=== PATIENT | female | born 1985 | race Caucasian/White ===

== ENCOUNTER → 2016-10-22 | Outpatient (CLI) | payer MEDICAID ==
[~2016-10-22] MED LIST: AZIT500T3 PO; CEPH-443 PO; HYDR-3498 PO; IBUP-1542 PO; METR500T PO; ORA20G7 BUCCAL; PEN500 PO; [UNRECOGNIZED DRUG - REMARK]
--- NOTE | 2016-10-22 12:38 | RADRPT ---
PROCEDURE: XR Chest. CLINICAL INDICATION: Positive PPD. TECHNIQUE: Single frontal view. COMPARISON: None. FINDINGS: The lungs are clear. The heart size is normal. There is no pleural effusion. There is no pneumothorax. IMPRESSION: 1. No evidence of active tuberculosis. 2. Normal chest radiograph. RPTAT: QQ .Ramírez Silvestre MD, MD Date Time Electronically viewed and signed by .Ramírez Silvestre MD, on 10/22/2016 12:37 .R/
== END | disposition home or self-care (01) ==
LOC: RAD 11:30
PROVIDERS: ATTEND Obstetrics & Gynecology
DX: O26.90 Pregnancy related conditions, unspecified, unspecified trimester (principal); Z3A.00 Weeks of gestation of pregnancy not specified; R76.11 Nonspecific reaction to tuberculin skin test without active tuberculosis
CPT/HCPCS: 71010

== ENCOUNTER 2016-11-09 15:11 | Inpatient (IN) | payer MEDICAID ==
[~2016-11-09] VITALS: Ht 154.9 cm; Wt 110.0 kg
[2016-11-09 15:20] VITALS: Ht 154.9 cm; Wt 110.0 kg
[2016-11-09 15:23] VITALS: BP 117/60
[2016-11-09] MEDS ORDERED: PRENAT PO (15:26)
[2016-11-09 16:39] LABS: BASOPHILS % 0.1 % (0.0-2.0); EOSINOPHILS # 0.1 10^3/ul (0.0-0.5); HEMOGLOBIN 11.4 g/dl (12.0-16.0); MEAN CORPUSCULAR HEMOGLOBIN 29.2 pg (29.0-33.0); MEAN CORPUSCULAR HGB CONC 33.5 g/dl (32.0-37.0); MEAN CORPUSCULAR VOLUME 87.2 fl (82.0-101.0); MONOCYTE # 0.5 10^3/ul (0.3-0.9); MONOCYTES % 6.8 % (0.0-11.0); NEUTROPHIL # 5.5 10^3/ul (1.6-7.5); NEUTROPHILS % 77.4 % (39.0-77.0); PLATELET COUNT 243 10^3/UL (140-415); RED CELL DISTRIBUTION WIDTH 13.5 % (11.5-14.5); WHITE BLOOD COUNT 7.1 10^3/ul (4.8-10.8)
--- NOTE | 2016-11-09 16:40 | RADRPT ---
PROCEDURE: CERVICAL LENGTH ULTRASOUND CLINICAL INDICATION: Abnormal vaginal bleeding. TECHNIQUE: Trans-vaginal imaging of the cervical canal was performed utilizing thacker-scale imaging. Sagittal and transverse images were obtained. Trans-abdominal images were also obtained. The cipriano ges were reviewed on a PACS workstation. COMPARISON: None. FINDINGS: There is a single live intrauterine . heart rate is 136 beats per minute. Position is cephalic and placenta is fundal grade II. There is no placenta previa. The cervix is closed with a length of 4.1 cm. IMPRESSION: 1. Cervical length is 4.1 cm. RPTAT: QQ .Ramírez Silvestre MD, MD Date Time Electronically viewed and signed by .Ramírez Silvestre MD, on 11/09/2016 16:39 .R/
[2016-11-09 17:57] LABS: ADD UMIC NO; UR ASCORBIC ACID NEGATIVE (NEGATIVE); UR BILIRUBIN (Dip) NEGATIVE (NEGATIVE); UR BLOOD (Dip) NEGATIVE (NEGATIVE); UR CLARITY CLEAR (CLEAR); UR COLOR STRAW (YELLOW); UR GLUCOSE (Dip) NEGATIVE (NEGATIVE); UR KETONES (Dip) NEGATIVE (NEGATIVE); UR LEUKOCYTE ESTERASE (Dip) NEGATIVE Leu/ul (NEGATIVE); UR NITRITE (Dip) NEGATIVE (NEGATIVE); UR SPECIFIC GRAVITY (Dip) 1.006 (1.003-1.030); UR TOTAL PROTEIN (Dip) NEGATIVE (NEGATIVE); UR UROBILINOGEN (Dip) NEGATIVE (NEGATIVE)
--- NOTE | 2016-11-09 18:29 | PN ---
Triage Information Date/Time Weeks of Gestation 31+wks GA spotting : 4 Para: 3 Objective Vital Signs Date Time Temp Pulse Resp B/P Pulse Ox O2 Delivery O2 Flow Rate FiO2 11/09/16 15:23 98.0 117/60 Room Air Results/Medications Result Diagram: 11/09/16 1627 Results 24 hrs Laboratory Tests Test 11/09/16 16:05 11/09/16 16:27 Urine Color STRAW Urine Clarity CLEAR Urine pH 7.0 Urine Specific Newcomb 1.006 Urine Ketones NEGATIVE Urine Nitrite NEGATIVE Urine Bilirubin NEGATIVE Urine Urobilinogen NEGATIVE Urine Leukocyte Esterase NEGATIVE Urine Hemoglobin NEGATIVE Urine Glucose NEGATIVE Urine Total Protein NEGATIVE White Blood Count 7.1 Red Blood Count 3.90 L Hemoglobin 11.4 L Hematocrit 34.0 L Mean Corpuscular Volume 87.2 Mean Corpuscular Hemoglobin 29.2 Mean Corpuscular Hemoglobin Concent 33.5 Red Cell Distribution Width 13.5 Platelet Count 243 Mean Platelet Volume 9.0 Neutrophils % 77.4 H Lymphocytes % 14.0 L Monocytes % 6.8 Eosinophils % 1.0 Basophils % 0.1 Nucleated Red Blood Cells % 0.0 Neutrophils # 5.5 Lymphocytes # 1.0 Monocytes # 0.5 Eosinophils # 0.1 Basophils # 0.0 Nucleated Red Blood Cells # 0.0 Assessment/Plan CXL WNL No sign of bleeding If RH Positive and There is no abnormality in BPP and she is RH positive can be discharge and followed up with her provider Return to hospital in 2 days for NST./BPP TIO TATE M.D. Nov 09, 2016 18:29
--- NOTE | 2016-11-09 19:12 | RADRPT ---
PROCEDURE: OB ultrasound CLINICAL INDICATION: Vaginal spotting TECHNIQUE: Multiple transverse and longitudinal OB images of the pelvis were obtained. The images were reviewed on a high-resolution PACS workstation. COMPARISON: None FINDINGS: A single live intrauterine is seen. The presentation is vertex. The placenta is grade 2 a nd fundal in location. No evidence of placenta abruption or previa is seen. The heart rate is 168 beats per minute. The amniotic fluid index is 6.80 cm. movement 2 tone 2 breathing 2 Amniotic fluid 2 IMPRESSION: Biophysical profile of 11/27. RPTAT: HPNM Physician Jenny Date Time Electronically viewed and signed by Physician Jenny on 11/09/2016 19:12 /
[2016-11-09] MEDS: LACTATED RINGER'S 1,000 ML IV SCH (21:36)
[2016-11-09] MEDS ORDERED: TERBUTALINE 1 MG/ML INJ SC ONE (22:30)
[2016-11-09] MEDS: NIFEdipine 10 MG CAP PO SCH (23:51)
--- NOTE | 2016-11-10 00:28 | TRIAGE ---
OB Triage Datetime Report Generated by CPN: 11/10/2016 00:28 Datetime: 11/10/2016 00:15 Stage of : Antepartum Labor Evaluation Frequency: OCCA Monitor Mode: External Duration (sec)2399: 50 Quality: Mild Pattern: Normal: <= 5 Contractions in 10 Minutes Resting Tone Ettrick: Relaxed Contraction Comments: MILD IRRITABILITY NOTED. ABDOMEN SOFT ON PALPATION. Heart Rate FHR Baseline Rate: 135 Monitor Mode: External US Variability: Moderate 6-25 bpm Accelerations: 15X15 Decelerations: None Category: Category I Comments: PT ACKNOWLEDGES MOVEMENT Pain Assessment Comments: PT STATES FEELING RELIEF FROM CRAMPING. Datetime: 11/10/2016 00:05 Stage of : Antepartum Datetime: 11/09/2016 23:57 Stage of : Antepartum Assessment Type: Admission Assessment Vaginal Bleeding: None (Annotations: NO BLEEDING NOTED AT THIS TIME.) Maternal Assessment Level of Consciousness: Fully Conscious DTR's/Clonus: DTRs 2+; No Clonus Headache: Denies Blurred Vision: No Respiratory Effort: Unlabored; Regular Rhythm; Equal Expansion Breath Sounds, Left: Clear and Equal Breath Sounds, Right: Clear and Equal Nausea/Vomiting: Denies RUQ Epigastric Pain: Denies Lower Extremities Edema: Bilateral Lower Extremities Degree: 1+ Upper Extremities Edema: Bilateral Upper Extremities Degree: 1+ Facial Edema: None Fall Risk Assessment History of Falling: (0) No Secondary Diagnosis: (0) No Ambulatory Aid: (0) Bedrest/Nurse Assist IV Therapy: (20) Yes Gait: (0) Normal/Bedrest/Immobile Mental Status: (0) Oriented to Own Ability Fall Score: 20 Fall Risk Score Definition: No Risk: No action required Pain Assessment Pain Scale: 3 Pain Presence: Intermittent Pain Type: Cramping Pain Location: Abdomen; Back Pain Goal: 3 Datetime: 11/09/2016 23:40 Time of Arrival: 11/09/2016 23:40 EGA: 31.6 Arrived By: Wheelchair Arrived From: Other Unit in Hospital Datetime: 11/09/2016 23:30 Comments: Pt off monitor, taken to 2NE via wheelchair. Datetime: 11/09/2016 23:00 Stage of : OB Triage Labor Evaluation Frequency: 3-12 Monitor Mode: External Duration (sec)2399: 40-110 Quality: Mild Pattern: Normal: <= 5 Contractions in 10 Minutes Resting Tone Ettrick: Relaxed Heart Rate FHR Baseline Rate: 130 Monitor Mode: External US FHR Baseline Changes: No Baseline Change Variability: Moderate 6-25 bpm Accelerations: 15X15 Decelerations: None Category: Category I Datetime: 11/09/2016 22:35 Stage of : OB Triage Datetime: 11/09/2016 22:00 Stage of : OB Triage Labor Evaluation Frequency: 3-12 Monitor Mode: External Duration (sec)2399: 40-110 Quality: Mild Pattern: Normal: <= 5 Contractions in 10 Minutes Resting Tone Ettrick: Relaxed Heart Rate FHR Baseline Rate: 135 Monitor Mode: External US FHR Baseline Changes: No Baseline Change Variability: Moderate 6-25 bpm Accelerations: 15X15 Decelerations: None Category: Category I Datetime: 11/09/2016 21:21 Monitor Mode: External US Datetime: 11/09/2016 21:00 Stage of : OB Triage Labor Evaluation Frequency: 1-9 Monitor Mode: External Duration (sec)2399: 40-110 Quality: Mild Pattern: Normal: <= 5 Contractions in 10 Minutes Resting Tone Ettrick: Relaxed Heart Rate FHR Baseline Rate: 135 Monitor Mode: External US FHR Baseline Changes: No Baseline Change Variability: Moderate 6-25 bpm Accelerations: 15X15 Decelerations: None Category: Category I Datetime: 11/09/2016 20:00 Stage of : OB Triage Labor Evaluation Frequency: 8-10 (Annotations: with occassional irritability.) Monitor Mode: External Duration (sec)2399: 60-110 Quality: Mild Pattern: Normal: <= 5 Contractions in 10 Minutes Resting Tone Ettrick: Relaxed Heart Rate FHR Baseline Rate: 135 Monitor Mode: External US FHR Baseline Changes: No Baseline Change Variability: Moderate 6-25 bpm Accelerations: 15X15 Decelerations: None Category: Category I Datetime: 11/09/2016 19:14 Assessment Type: Ongoing Assessment Maternal Assessment Level of Consciousness: Fully Conscious DTR's/Clonus: DTRs 2+; No Clonus Headache: Denies Blurred Vision: No Respiratory Effort: Unlabored; Regular Rhythm; Equal Expansion Breath Sounds, Left: Clear and Equal Breath Sounds, Right: Clear and Equal Nausea/Vomiting: Denies RUQ Epigastric Pain: Denies Lower Extremities Edema: None Degree: None Upper Extremities Edema: Bilateral Upper Extremities Degree: 1+ Facial Edema: None Fall Risk Assessment History of Falling: (0) No Secondary Diagnosis: (0) No Ambulatory Aid: (0) Bedrest/Nurse Assist IV Therapy: (0) No Gait: (0) Normal/Bedrest/Immobile Mental Status: (0) Oriented to Own Ability Fall Score: 0 Fall Risk Score Definition: No Risk: No action required Monitor Mode: External US Datetime: 11/09/2016 18:47 Stage of : OB Triage Labor Evaluation Frequency: 0 Monitor Mode: External Pattern: Normal: <= 5 Contractions in 10 Minutes Resting Tone Ettrick: Relaxed Heart Rate FHR Baseline Rate: 145 Monitor Mode: External US Variability: Moderate 6-25 bpm Accelerations: 15X15 Category: Category I Pain Presence: None/Denies Pain Type: N/A Vaginal Exam Membrane Status: Intact Datetime: 11/09/2016 17:45 Stage of : OB Triage Labor Evaluation Frequency: 0 Monitor Mode: External Pattern: Normal: <= 5 Contractions in 10 Minutes Resting Tone Ettrick: Relaxed Heart Rate FHR Baseline Rate: 135 Monitor Mode: External US Variability: Moderate 6-25 bpm Accelerations: 15X15 Decelerations: None Category: Category I Pain Presence: None/Denies Pain Type: N/A Datetime: 11/09/2016 16:22 Stage of : OB Triage Labor Evaluation Frequency: IRREG Monitor Mode: External Duration (sec)2399: 30-60 Pattern: Normal: <= 5 Contractions in 10 Minutes Resting Tone Ettrick: Relaxed Heart Rate FHR Baseline Rate: 135 Variability: Moderate 6-25 bpm Accelerations: 15X15 Decelerations: None Category: Category I Pain Presence: None/Denies Pain Type: N/A Vaginal Exam Membrane Status: Intact Datetime: 11/09/2016 15:28 Stage of : OB Triage Assessment Type: Triage Maternal Assessment Level of Consciousness: Fully Conscious DTR's/Clonus: DTRs 2+; No Clonus Headache: Denies Blurred Vision: No Respiratory Effort: Unlabored; Regular Rhythm; Equal Expansion Breath Sounds, Left: Clear and Equal Breath Sounds, Right: Clear and Equal Nausea/Vomiting: Denies RUQ Epigastric Pain: Denies Lower Extremities Edema: Bilateral Lower Extremities Degree: Pitting Upper Extremities Edema: None Facial Edema: None Temperature Route: Oral Fall Risk Assessment History of Falling: (0) No Secondary Diagnosis: (0) No Ambulatory Aid: (0) Bedrest/Nurse Assist IV Therapy: (0) No Gait: (0) Normal/Bedrest/Immobile Mental Status: (0) Oriented to Own Ability Fall Score: 0 Fall Risk Score Definition: No Risk: No action required Labor Evaluation Frequency: 0 Monitor Mode: External Heart Rate FHR Baseline Rate: 145 Monitor Mode: External US Pain Assessment Pain Scale: 0 Pain Presence: None/Denies Pain Type: N/A Datetime: 11/09/2016 15:27 Time of Arrival: 11/09/2016 15:05 EGA: 31.6 Arrived By: Ambulatory Arrived From: Home Chief Complaint: C/P SPOTTING Movement: Present Contractions: Denies/Absent Rupture of Membranes: Denies Vaginal Bleeding: Small Vaginal Discharge: Denies Recent Sexual Intercouse: Denies Abdominal Trauma: Not Applicable Patient Complaints: Other Time Provider Notified: 11/09/2016 16:05 Provider Notified: DR. BARRETO Initial Plan: EFMSara, TORI APPIAH
[2016-11-10] MEDS: LACTATED RINGER'S 1,000 ML IV SCH ×3 (03:39→22:18)
[2016-11-10] MEDS: NIFEdipine 10 MG CAP PO SCH (06:12)
[2016-11-10] MEDS ORDERED: ONDANSETRON 4 MG INJ IV PRN (09:00)
[2016-11-10] MEDS ORDERED: MAGNESIUM SULFATE 4 GM/100 ML 100 ML IV ONE (09:00)
[2016-11-10] MEDS: ERYTHROMYCIN LACTOBIONATE 500 MG in SOD CHLORIDE 0.9% 100 ML IVPB SCH ×3 (09:00→17:29)
[2016-11-10] MEDS ORDERED: ACETAMINOPHEN 325 MG TAB PO PRN (09:00)
[2016-11-10] MEDS ORDERED: AL HYDROX/MG HYDROX/SIMETH 30 ML CUP PO PRN (09:00)
[2016-11-10 09:40] LABS: BASOPHILS % 0.1 % (0.0-2.0); EOSINOPHILS % 0.6 % (0.0-7.0); HEMOGLOBIN 11.2 g/dl (12.0-16.0); LYMPHOCYTES # 0.8 10^3/ul (0.8-2.9); LYMPHOCYTES % 11.2 % (15.0-51.0); MEAN CORPUSCULAR HEMOGLOBIN 29.1 pg (29.0-33.0); MEAN CORPUSCULAR HGB CONC 32.9 g/dl (32.0-37.0); MEAN CORPUSCULAR VOLUME 88.3 fl (82.0-101.0); MEAN PLATELET VOLUME 8.9 fl (7.4-10.4); MONOCYTE # 0.5 10^3/ul (0.3-0.9); MONOCYTES % 7.4 % (0.0-11.0); NEUTROPHIL # 5.6 10^3/ul (1.6-7.5); PLATELET COUNT 231 10^3/UL (140-415); RED BLOOD COUNT 3.85 10^6/ul (4.20-5.40); RED CELL DISTRIBUTION WIDTH 13.8 % (11.5-14.5)
[2016-11-10] MEDS: BETAMET NA PHOS/AC(6 MG/ML) 5ML INJ IM SCH (09:44)
[2016-11-10] MEDS: AMPICILLIN 2 GM/NS (PMX) 100 ML IV SCH ×4 (09:44→23:57)
[2016-11-10] MEDS: MAGNESIUM SULFATE 20 GM/500 ML 500 ML IV SCH ×2 (09:54→21:20)
[2016-11-10 10:06] LABS: INR 0.95; PARTIAL THROMBOPLASTIN TIME 30.7 Sec (25.0-35.0); PROTIME 12.7 Sec (12.2-14.2)
--- NOTE | 2016-11-10 10:41 | RADRPT ---
PROCEDURE: US OB. CLINICAL INDICATION: Leaking amniotic fluid. TECHNIQUE: Multiple sonographic images of the uterus were obtained. The images were revi ewed on a PACS workstation. COMPARISON: No prior studies are available for comparison. FINDINGS: There is a single live intrauterine gestation. heart rate is 144 beats per minute. Measurements were made in order to determine age. The results are as follows: BPD = 8.32 cm. HC = 29.86 cm. AC = 32.33 cm. FL = 6.13 cm. Estimated weight is 2438 +/- 366 grams. LMP growth percentile is greater than 97 %. Menstrual age by ultrasound dates is 33 weeks 5 days. The estimated date of delivery is 12/24/2016. Amniotic fluid index is 10.9 cm. Position is cephalic and placenta is posterior grade II. There is no evidence for an abruption or pl acenta previa. IMPRESSION: 1. Single live intrauterine gestation of 33 weeks 5 days menstrual age by ultrasound dates. 2. The estimated date of delivery is 12/24/2016. RPTAT: QQ .Ramírez Silvestre MD, MD Date Time Electronically viewed and signed by .Ramírez Silvestre MD, on 11/10/2016 10:40 .R/
[2016-11-10] MEDS: PRENATAL VITAMIN PO SCH (10:44)
--- NOTE | 2016-11-10 17:57 | HP ---
Date/Time of Note Date/Time of Note DATE: 11/10/16 TIME: 17:53 OB - History Hx of Present Free Text/Dictation Admitted complaining of contractions started at 1500 p.m. on 11/09 Chief Complaint: Vaginal bleeding and uterine contractions Estimated Due Date: Nov 04, 2016 : 4 Para: 3 Care: Other (Unknown at this point) Ultrasounds: Normal mid trimester US Obstetrical Complications: None Medical Complications: None Past Family/Social History * Past Medical, Surgical, Family and Obstetric Histories reviewed from chart. OB Admission Exam Vital Signs Vital Signs Vital Signs Date Time Temp Pulse Resp B/P Pulse Ox O2 Delivery O2 Flow Rate FiO2 11/09/16 15:23 98.0 117/60 Room Air Physical Exam HEENT: WNL Heart: Rhythm Normal Lungs: Clear, Equal Abdomen: WNL Extremities: Normal Reflexes: Normal Cervical Dilatation: None Effacement: 0% Station: -3 Membranes: Intact Heart Rate: 140's Accelerations: Accelerations Present Decelerations: No Decelerations Varibility: Marked Contractions on Admission: >10 Minutes Apart Date/Time Contractions Began: 11/09/2016 1800 p.m. Frequency of Contractions: Every 5-10 minutes Duration: Over 45 seconds Intensity: Mild Last 72 hours Lab Results CBC & BMP 11/09/16 16:27 11/10/16 09:28 Magnesium Level Test 11/10/16 12:02 Magnesium Level 3.4 H OB Assessment/Plan Reason for admission: labor Other Assessment: Vaginal bleeding Decreased amniotic fluid possible spontaneous rupture of Other plan: Admitted originally for observation Complaining of passage of large amounts of fluid at 400 a.m. on November 10 This service will treat patient for spontaneous rupture of membranes at 31 week If bleeding stops with performed more sensitive test to diagnose or rule out spontaneous rupture of membrane BROOKE ANGEL MD Nov 10, 2016 17:57
--- NOTE | 2016-11-10 17:59 | PN ---
Date/Time of Note Date/Time of Note DATE: 11/10/16 TIME: 17:57 OB Subjective Subjective Subjective No more complaint of vaginal bleeding Feels a lot better comparing to yesterday Has minimal complaint of uterine contractions OB Objective Objective Objective Cervix was reexamined today appear to be closed General physical exam vital signs are within normal limits Patient had DAT of over 10 today Because of complaint of vaginal bleeding this morning more sensitive test to rule out ruptured membranes was not performed OB Assessment/Plan Reason for admission: labor Other Assessment: Possible rupture membranes at 31 weeks Other plan: Continue tocolysis We will perform sensitive test for ruptured membrane next day if patient does not have complaint of vaginal bleeding Meanwhile treat the patient for spontaneous rupture of membranes including steroids and IV antibiotic BROOKE ANGEL MD Nov 10, 2016 17:59
[2016-11-11] MEDS: ERYTHROMYCIN LACTOBIONATE 500 MG in SOD CHLORIDE 0.9% 100 ML IVPB SCH ×4 (00:52→18:22)
[2016-11-11] MEDS: AMPICILLIN 2 GM/NS (PMX) 100 ML IV SCH ×4 (06:40→23:31)
[2016-11-11] MEDS: MAGNESIUM SULFATE 20 GM/500 ML 500 ML IV SCH ×2 (06:44→17:11)
[2016-11-11] MEDS: PRENATAL VITAMIN PO SCH (09:08)
[2016-11-11] MEDS: BETAMET NA PHOS/AC(6 MG/ML) 5ML INJ IM SCH (09:48)
[2016-11-11] MEDS: LACTATED RINGER'S 1,000 ML IV SCH (11:14)
--- NOTE | 2016-11-11 12:26 | PN ---
Date/Time of Note Date/Time of Note DATE: 11/11/16 TIME: 12:23 OB Subjective Subjective Subjective No more complaint of leaking No complaint of uterine contractions OB Objective Objective Objective Vital signs stable General physical examination is unchanged ruptured membrane is positive OB Assessment/Plan Reason for admission: labor Other Assessment: spontaneous rupture of membrane 31+ weeks gestation Other plan: We will continue magnesium sulfate at least 24 hours Perinatology consult next day Continue antibiotics until at least 24 hours BROOKE ANGEL MD Nov 11, 2016 12:26
--- NOTE | 2016-11-11 14:07 | RADRPT ---
PROCEDURE: US OB. CLINICAL INDICATION: labor. Low DAT TECHNIQUE: Pelvic ultrasound performed for biophysical profile. COMPARISON: 11/10/2016 ultrasound FINDINGS: Single intrauterine gestation present with heart rate at 131 beats per minute. Presentation is ceph alic. Placenta is fundal, grade II. Amniotic fluid volume is within normal limits, with DAT = 1 0.28 cm. IMPRESSION: Live intrauterine gestation in cephalic presentation. DAT of 10.3 cm. No definite evidence for placental abruption. RPTAT: HH .Osmani Pool MD, MD Date Time Electronically viewed and signed by .Osmani Pool MD, on 11/11/2016 14:07 .M/
[2016-11-11] MEDS ORDERED: ERYTHROMYCIN LACTOBIONATE 500 MG in SOD CHLORIDE 0.9% 100 ML IVPB SCH (18:00)
[2016-11-12] MEDS: ERYTHROMYCIN LACTOBIONATE 500 MG in SOD CHLORIDE 0.9% 100 ML IVPB SCH ×4 (00:21→18:11)
[2016-11-12] MEDS: MAGNESIUM SULFATE 20 GM/500 ML 500 ML IV SCH ×2 (04:35→15:29)
[2016-11-12] MEDS: LACTATED RINGER'S 1,000 ML IV SCH ×2 (05:32→14:18)
[2016-11-12] MEDS: AMPICILLIN 2 GM/NS (PMX) 100 ML IV SCH ×3 (05:32→17:38)
[2016-11-12] MEDS: PRENATAL VITAMIN PO SCH (08:41)
--- NOTE | 2016-11-12 16:32 | PERINOTE ---
Date/Time of Note Date/Time of Note DATE: 11/12/16 TIME: 16:15 Assessment/Recommendations Other Assessments premature rupture of membranes (suspected) Known trisomy 21 fetus Recommendations: Agree with your plan for observation in the hospital with antibiotics for latency. Would discontinue tocolysis after completion of the steroid course for lung maturity. If the patient continues to leak fluid, would favor delivery at 34-35 weeks GA. If leaking stops and fluid volume recovers would assess whether the membrane had sealed; this would allow the patient to be discharged with routine follow up. OB Subjective Free Text/Dictaton Patient with known trisomy 21 fetus admitted with vaginal spotting and loss of fluid, thought to be due to rupture of membranes. Currently denies vaginal leaking and denies other issues. HD# 4 IUP @ 32W2D Current Medications Current Medications Prenat Multivit/ [place]/Iron/Folic Ac 1 tab 1 tab DAILY PO Last administered on 11/12/16 08:41; Admin Dose 1 TAB; Start 11/10/16 at 09:00 Lactated Ringer's 1,000 ml @ 75 mls/hr [id number] IV Last administered on 05:32; Admin Dose 75 MLS/HR; Start 11/10/16 at 08:58 Magnesium Sulfate 500 ml @ 50 mls/hr Q10H IV Last administered on 11/12/16 15 :29; Admin Dose 50 MLS/HR; Start 11/10/16 at 08:58 Ampicillin 100 ml @ 100 mls/hr Q6 IV Last administered on 11/12/16 11:31; Admin Dose 100 MLS/HR; Start 11/10/16 at 09:00 Erythromycin Lactobionate/ Sodium Chloride (Erythromycin Lactobionate/NS) 100 ml @ 100 mls/hr Q6 IVPB Last administered on 11/12/16 11:38; Admin Dose 100 MLS/HR; Start 11/10/16 at 09:00 Acetaminophen (Tylenol Tab) 650 mg Q4H PRN PO PAIN AND OR ELEVATED TEMP Last administered on 11/10/16 10:44; Admin Dose 650 MG; Start 11/10/16 at 09:00 Al Hydrox/Mg Hydrox/Simethicone (Mag-Al Plus) 30 ml Q6H PRN PO GASTROINTESTINAL UPSET; Start 11/10/16 at 09:00 Ondansetron HCl (Zofran Inj) 4 mg Q6H PRN IV NAUSEA AND/OR VOMITING; Start at 09:00 Past Medical History Medical History: no pertinent history Surgical History: no surgical history VASCULAR TECH History: no pertinent VASCULAR TECH history Para: 3 : 4 LMP (Females 10-50): Family History Significant Family History: diabetes OB Admission Exam Physical Exam Vitals: Vital Signs Date Time Temp Pulse Resp B/P Pulse Ox O2 Delivery O2 Flow Rate FiO2 11/09/16 15:23 98.0 117/60 Room Air 11/12/16 82 114/34 Heart: Rhythm Normal Lungs: Clear Abdomen: WNL Heart Rate: 120's Accelerations: Accelerations Present Decelerations: No Decelerations Varibility: Moderate Contractions on Admission: None Last 72 hours Lab Results CBC & BMP 11/09/16 16:27 11/10/16 09:28 Magnesium Level Test 11/10/16 12:02 11/10/16 18:19 11/11/16 00:41 11/11/16 06:41 Magnesium Level 3.4 H 4.5 H 4.4 H 4.7 H Test 11/11/16 13:16 11/11/16 18:24 11/12/16 00:35 11/12/16 05:50 Magnesium Level 4.5 H 4.5 H 4.5 H 4.4 H Test 11/12/16 12:18 Magnesium Level 4.4 H Copies To: CC: BROOKE ANGEL MD, MARIE H MD Nov 12, 2016 16:31
--- NOTE | 2016-11-12 18:19 | PN ---
Date/Time of Note Date/Time of Note DATE: 11/12/16 TIME: 18:16 OB Subjective Subjective Subjective No more complaint of a uterine contractions Complaining of leakage OB Objective Objective Objective Vital signs stable General physical exam is grossly normal On electronic monitoring minimal uterine contractions seen. heart tones reactive OB Assessment/Plan Reason for admission: labor Other Assessment: spontaneous rupture of membranes at 31 weeks Other plan: We will discontinue magnesium sulfate Start on p.o. nifedipine Change to p.o. antibiotics within 24 hours BROOKE ANGEL MD Nov 12, 2016 18:19
[2016-11-12] MEDS: NIFEdipine 10 MG CAP PO SCH (18:30)
[2016-11-13] MEDS: AMPICILLIN 2 GM/NS (PMX) 100 ML IV SCH ×3 (05:12→11:27)
[2016-11-13] MEDS: LACTATED RINGER'S 1,000 ML IV SCH ×3 (05:13→11:35)
[2016-11-13] MEDS: ERYTHROMYCIN LACTOBIONATE 500 MG in SOD CHLORIDE 0.9% 100 ML IVPB SCH ×4 (06:01→12:16)
[2016-11-13] MEDS: NIFEdipine 10 MG CAP PO SCH ×5 (06:02→23:57)
[2016-11-13] MEDS: PRENATAL VITAMIN PO SCH (08:57)
--- NOTE | 2016-11-13 12:54 | RADRPT ---
PROCEDURE: US OB. CLINICAL INDICATION: Low DAT , pain, premature rupture of membranes TECHNIQUE: Transabdominal views of the pelvis are available for review. COMPARISON: Yesterday FINDINGS: There is a single intrauterine gestation in a vertex position. The heart rate is noted at 139 bpm. The placenta is left lateral. The DAT measures 11.2 cm. RPTAT: AA IMPRESSION: Normal DAT. .Chepe Frankel MD, MD Date Time Electronically viewed and signed by .Chepe Frankel MD, MD on 11/13/2016 12:54 .S/
--- NOTE | 2016-11-13 15:50 | PN ---
Date/Time of Note Date/Time of Note DATE: 11/13/16 TIME: 15:44 OB Subjective Subjective Subjective No C/O UC no more leaking OB Objective Objective Objective VSS P/E is unchanged FHTs R The DAT measures 11.2 cm. OB Assessment/Plan Reason for admission: labor Other Assessment: spontaneous rupture of membrane Normal amniotic fluid index Other plan: We will recheck for ruptured membrane by reliable method BROOKE ANGEL MD Nov 13, 2016 15:50
[2016-11-13] MEDS: ERYTHROMYCIN BASE (EC) 500 MG TAB PO SCH ×2 (17:37→23:58)
[2016-11-13] MEDS: AMPICILLIN 500 MG CAP PO SCH ×2 (17:38→23:58)
[2016-11-14] MEDS: LACTATED RINGER'S 1,000 ML IV SCH ×2 (03:43→17:41)
[2016-11-14] MEDS: AMPICILLIN 500 MG CAP PO SCH ×3 (06:02→17:45)
[2016-11-14] MEDS: ERYTHROMYCIN BASE (EC) 500 MG TAB PO SCH ×3 (06:02→17:45)
[2016-11-14] MEDS: NIFEdipine 10 MG CAP PO SCH ×3 (06:02→17:45)
[2016-11-14] MEDS: PRENATAL VITAMIN PO SCH (09:32)
--- NOTE | 2016-11-14 15:03 | PN ---
Date/Time of Note Date/Time of Note DATE: 11/14/16 TIME: 15:01 OB Subjective Subjective Subjective No complaint of leakage No complaint of vaginal bleeding Had episode of vaginal bleeding yesterday OB Objective Objective Objective Patient had elevated DAT is on daily basis On electronic monitoring heart tones are reactive General physical exam is unchanged and vital signs are stable OB Assessment/Plan Reason for admission: labor Other Assessment: spontaneous rupture of membrane Other plan: We will repeat positive form of amniotic leakage detection next day Continue to observe BROOKE ANGEL MD Nov 14, 2016 15:03
--- NOTE | 2016-11-14 15:16 | QN ---
Documentation Job number: Neonatology consultation for 32.4 week premature with premature rupt Comment I was asked to talk with his mother who is 30-year-old 4 para 3 term 3 Ab0 living 3 with good care. EDC 01/05/2017. Estimated gestational age is 32.4 weeks. Mother was admitted on 11/09 with no history of premature rupture of membranes. She has been started on mag sulfate and also antibiotics on 722. She received betamethasone first dose on 11/10 at 0495 hours and second dose on 11/11 at 0495 hours. Down syndrome was diagnosed by [facility] PT during the second trimester. There is also questionable double bubble documented but however no ultrasound reports were seen and confirmation was not documented. Also the possibility of congenital heart disease was not documented. Mother's blood type is O+, RPR nonreactive, hepatitis B antigen negative, HIV negative and GBS positive and GC and chlamydia cultures negative. I discussed with mother about the possibility of respiratory distress and treatment with oxygen administration high flow nasal cannula and CPAP and ventilation if needed. I also discussed with her about possible apnea and to be monitored and consider caffeine treatment if apnea is severe. I also discussed about increased risk of infection due to prematurity as well as mother being positive for GBS. I discussed about obtaining the lab tests as well as cultures and either treating the infant or to be monitored for infection based on infant's clinical condition. Discussed about starting tube feedings when the 's clinical condition is stable. Discussed about slow feeding, feeding intolerance, risk for gastroesophageal reflux, necrotizing enterocolitis. Encourage mother to pump breastmilk and discussed about the benefits of breastmilk to the premature . Also discussed about the infant to be started on bottle feeding as well as breast-feeding when shows signs of readiness but however due to Down syndrome that may be delayed. Also discussed about the possibility of congenital heart disease in Down's infant's and to be monitored for congenital heart disease. Discussed about possibility of a PICC line placement if infant has feeding intolerance and slow feeding. Also discussed about the risk of hyperbilirubinemia and other problems of prematurity. Discussed about length of stay of 4-6 weeks or longer depending on 's clinical stability and feeding ability. Discussed about mortality as well as morbidity. Mother stated that she was told that there was an opening in the stomach and the infant may need surgery soon after . Maternal charts were reviewed and there was a problem list mentioned that Dr. Upton he mentioned seeing double bubble on ultrasound. Ultrasound reports were not seen and also there was no discussion about congenital heart disease. Requested RN taking care of the mother to obtain the perinatology reports and discussed with mother about possibility of surgery soon after the is born and transferred to a different facility for surgery. 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 Will review tomorrow and update the mother and also discuss the follow-up as well as treatment plans. Thank you for the consultation and will follow with you. LILIAN CARL MD Nov 14, 2016 15:16
--- NOTE | 2016-11-14 18:59 | QN ---
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
[2016-11-15] MEDS: AMPICILLIN 500 MG CAP PO SCH ×5 (06:09→23:32)
[2016-11-15] MEDS: ERYTHROMYCIN BASE (EC) 500 MG TAB PO SCH ×5 (06:09→23:32)
[2016-11-15] MEDS: NIFEdipine 10 MG CAP PO SCH ×5 (06:10→23:33)
[2016-11-15] MEDS: LACTATED RINGER'S 1,000 ML IV SCH ×2 (06:17→19:49)
[2016-11-15] MEDS: PRENATAL VITAMIN PO SCH (08:53)
--- NOTE | 2016-11-15 15:14 | PN ---
Date/Time of Note Date/Time of Note DATE: 11/15/16 TIME: 15:13 OB Subjective Subjective Subjective No complaint of leaking and or uterine contractions OB Objective Objective Objective Vital signs stable Physical exam is normal ROM plus test was positive on 726 heart tones are reactive Electronic monitoring no uterine contractions seen OB Assessment/Plan Reason for admission: labor Other Assessment: spontaneous rupture of membranes Other plan: Continue to observe Will DC p.o. antibiotics next day BROOKE ANGEL MD Nov 15, 2016 15:14
--- NOTE | 2016-11-15 15:23 | PERINOTE ---
Date/Time of Note Date/Time of Note DATE: 11/15/16 TIME: 15:19 Assessment/Recommendations Other Assessments PPROM on bedrest in the hospital Review of the chart in our office reveals the only anomaly seen is a "double bubble" suggestive of duodenal atresia. The echocardiogram was read as normal. There is a strong suspicion of Down Syndrome based on the ultrasound finding and a positive NIPT, but diagnostic testing has not been done. Recommendations: I discussed this patient with Dr. Clemente (furniture packer). He feels that the NICU service can manage this infant, although if there is a duodenal atresia it would be necessary to transfer the baby for surgery. I would continue liam patient in the hospital and on bedrest due to apparent PPROM OB Subjective Free Text/Dictaton Asked to reconsult this patient regarding appropriate delivery location. HD# 7 IUP @ [id number] Current Medications Current Medications Prenat Multivit/ Phelps/Iron/Folic Ac 1 tab 1 tab DAILY PO Last administered on 11/15/16 08:53; Admin Dose 1 TAB; Start 11/10/16 at 09:00 Lactated Ringer's (Lr) 1,000 ml @ 75 mls/hr [id number] IV Last administered on 06:17; Admin Dose 75 MLS/HR; Start 11/10/16 at 08:58 Acetaminophen (Tylenol Tab) 650 mg Q4H PRN PO PAIN AND OR ELEVATED TEMP Last administered on 11/10/16 10:44; Admin Dose 650 MG; Start 11/10/16 at 09:00 Al Hydrox/Mg Hydrox/Simethicone (Mag-Al Plus) 30 ml Q6H PRN PO GASTROINTESTINAL UPSET; Start 11/10/16 at 09:00 Ondansetron HCl (Zofran Inj) 4 mg Q6H PRN IV NAUSEA AND/OR VOMITING; Start at 09:00 Nifedipine (Procardia) 20 mg Q6 PO Last administered on 11/15/16 12:09; Admin Dose 20 MG; Start 11/12/16 at 18:30 Ampicillin (Ampicillin) 500 mg Q6 PO Last administered on 11/15/16 12:08; Admin Dose 500 MG; Start 11/13/16 at 18:00 Erythromycin (Erythromycin Base (Ec)) 500 mg Q6 PO Last administered on t 12:08; Admin Dose 500 MG; Start 11/13/16 at 18:00 OB Admission Exam Physical Exam Vitals: BP: 137/54 T: 98.3 Heart Rate: 150's Accelerations: Accelerations Present Decelerations: No Decelerations Varibility: Moderate Contractions on Admission: None Last 72 hours Lab Results Magnesium Level Test 11/12/16 18:21 Magnesium Level 4.0 H Copies To: CC: BROOKE ANGEL MD, MARIE H MD Nov 15, 2016 15:23
[2016-11-16] MEDS: AMPICILLIN 500 MG CAP PO SCH ×2 (05:47→11:59)
[2016-11-16] MEDS: ERYTHROMYCIN BASE (EC) 500 MG TAB PO SCH ×2 (05:47→11:59)
[2016-11-16] MEDS: NIFEdipine 10 MG CAP PO SCH ×4 (05:48→23:57)
[2016-11-16] MEDS: PRENATAL VITAMIN PO SCH (08:59)
[2016-11-16] MEDS: LACTATED RINGER'S 1,000 ML IV SCH ×2 (09:00→20:42)
--- NOTE | 2016-11-16 16:38 | PN ---
Date/Time of Note Date/Time of Note DATE: 11/16/16 TIME: 16:37 OB Subjective Subjective Subjective Was complaining of minimal leaking yesterday OB Objective Objective Objective Vital signs are stable General physical exam is normal heart tones are reactive On electronic monitoring minimal or no uterine contractions seen OB Assessment/Plan Reason for admission: labor Other Assessment: spontaneous rupture of membranes Other plan: We will DC p.o. antibiotics Continue p.o. nifedipine Repeat DAT BROOKE ANGEL MD Nov 16, 2016 16:38
[2016-11-16] MEDS: MAGNESIUM OXIDE 400 MG TAB PO SCH (20:42)
[2016-11-17] MEDS: NIFEdipine 10 MG CAP PO SCH ×3 (06:25→18:02)
--- NOTE | 2016-11-17 07:48 | RADRPT ---
PROCEDURE: US OB. CLINICAL INDICATION: Rupture of membranes , pain TECHNIQUE: Transabdominal views of the pelvis are available for review. COMPARISON: 11/13/2016 FINDINGS: There is a single intrauterine gestation in a vertex position. The heart rate is noted at 158 bpm. The placenta is left lateral. The DAT measures 5.1 cm. RPTAT: AA IMPRESSION: Oligohydramnios. .Chepe Frankel MD, MD Date Time Electronically viewed and signed by .Chepe Frankel MD, MD on 11/17/2016 07:47 .S/
[2016-11-17] MEDS: PRENATAL VITAMIN PO SCH (09:18)
[2016-11-17] MEDS: LACTATED RINGER'S 1,000 ML IV SCH ×2 (09:18→23:00)
[2016-11-17] MEDS: MAGNESIUM OXIDE 400 MG TAB PO SCH ×3 (09:18→21:13)
--- NOTE | 2016-11-17 17:30 | PN ---
Date/Time of Note Date/Time of Note DATE: 11/17/16 TIME: 17:26 OB Subjective Subjective Subjective Still has minimal leaking Denies uterine contractions OB Objective Objective Objective Vital signs are stable General physical exam is normal Uterus is nontender heart tones appeared reactive Amniotic fluid index is decreased comparing to prior studies OB Assessment/Plan Reason for admission: labor Other Assessment: spontaneous rupture of membrane at 31+ weeks Other plan: We will continue to observe on current medications Repeat CBC Monitor very closely for signs of amnionitis and or labor BROOKE ANGEL MD Nov 17, 2016 17:30
[2016-11-18] MEDS: NIFEdipine 10 MG CAP PO SCH ×5 (00:01→23:57)
[2016-11-18] MEDS: PRENATAL VITAMIN PO SCH (08:57)
[2016-11-18] MEDS: MAGNESIUM OXIDE 400 MG TAB PO SCH ×3 (08:57→20:50)
[2016-11-18] MEDS: LACTATED RINGER'S 1,000 ML IV SCH (12:23)
--- NOTE | 2016-11-18 17:16 | PN ---
Date/Time of Note Date/Time of Note DATE: 11/18/16 TIME: 17:15 OB Subjective Subjective Subjective Complaint of leakage No complaint of uterine contractions OB Objective Objective Objective Vital signs are stable Patient remains afebrile heart tones are reactive On electronic monitoring no uterine contractions seen OB Assessment/Plan Reason for admission: labor Other Assessment: spontaneous rupture of membranes Other plan: Continue to observe Patient also had uterine contractions will proceed with delivery BROOKE ANGEL MD Nov 18, 2016 17:16
[2016-11-19] MEDS: LACTATED RINGER'S 1,000 ML IV SCH ×2 (01:16→17:25)
[2016-11-19] MEDS: NIFEdipine 10 MG CAP PO SCH ×3 (05:54→18:30)
[2016-11-19] MEDS: PRENATAL VITAMIN PO SCH (08:50)
[2016-11-19] MEDS: MAGNESIUM OXIDE 400 MG TAB PO SCH ×3 (08:50→21:19)
--- NOTE | 2016-11-19 16:39 | PN ---
Date/Time of Note Date/Time of Note DATE: 11/19/16 TIME: 16:38 OB Subjective Subjective Subjective Has no complaint of leaking or contraction OB Objective Objective Objective Vital signs are stable General physical exam is unchanged Patient has nontender uterus heart tones are reactive On electronic monitoring no contractions seen OB Assessment/Plan Reason for admission: labor Other Assessment: spontaneous rupture of membrane Other plan: Continue to observe BROOKE ANGEL MD Nov 19, 2016 16:39
[2016-11-20] MEDS: NIFEdipine 10 MG CAP PO SCH ×4 (00:03→18:03)
[2016-11-20] MEDS: LACTATED RINGER'S 1,000 ML IV SCH ×2 (07:22→20:46)
[2016-11-20] MEDS: MAGNESIUM OXIDE 400 MG TAB PO SCH ×3 (08:38→20:46)
[2016-11-20] MEDS: PRENATAL VITAMIN PO SCH (08:39)
--- NOTE | 2016-11-20 12:20 | RADRPT ---
PROCEDURE: US evaluation of amniotic fluid volume. CLINICAL INDICATION: Low amniotic fluid volume. Ruptured membranes. TECHNIQUE: Multiple sonographic images of the gravid uterus were obtained utilizing thacker-scale cipriano ging. Sagittal and transverse images were obtained. The images were reviewed on a PACS workstation . DAT was measured. COMPARISON: 11/17/2016. FINDINGS: There is a single live intrauterine . heart rate is 154 beats per minute. Position is cephalic. Placenta is fundal grade II with no abruption or previa. DAT is 10.1 cm. (Normal = 5-20 cm.) IMPRESSION: 1. DAT is 10.1 cm. RPTAT: QQ .Ramírez Silvestre MD, Date Time Electronically viewed and signed by .Ramírez Silvestre MD, on 11/20/2016 12:20 .R/
[2016-11-20 15:53] LABS: BASOPHILS % 0.2 % (0.0-2.0); EOSINOPHILS # 0.1 10^3/ul (0.0-0.5); EOSINOPHILS % 0.8 % (0.0-7.0); HEMATOCRIT 35.5 % (37.0-47.0); HEMOGLOBIN 11.8 g/dl (12.0-16.0); LYMPHOCYTES # 1.1 10^3/ul (0.8-2.9); LYMPHOCYTES % 12.5 % (15.0-51.0); MEAN CORPUSCULAR HEMOGLOBIN 28.7 pg (29.0-33.0); MEAN CORPUSCULAR HGB CONC 33.2 g/dl (32.0-37.0); MEAN CORPUSCULAR VOLUME 86.4 fl (82.0-101.0); MEAN PLATELET VOLUME 8.7 fl (7.4-10.4); MONOCYTE # 0.7 10^3/ul (0.3-0.9); MONOCYTES % 7.7 % (0.0-11.0); NEUTROPHILS % 77.5 % (39.0-77.0); PLATELET COUNT 258 10^3/UL (140-415); RED BLOOD COUNT 4.11 10^6/ul (4.20-5.40); RED CELL DISTRIBUTION WIDTH 13.7 % (11.5-14.5)
--- NOTE | 2016-11-20 17:32 | PN ---
Date/Time of Note Date/Time of Note DATE: 11/20/16 TIME: 17:31 OB Subjective Subjective Subjective No complaint of leaking or uterine contractions OB Objective Objective Objective Vital signs are stable General physical exam is unchanged Uterus is nontender heart tones are reactive DAT today 10.1 cm OB Assessment/Plan Reason for admission: labor Other Assessment: spontaneous rupture of membranes Other plan: We will consult perinatologist regarding delivery time BROOKE ANGEL MD Nov 20, 2016 17:32
[2016-11-21] MEDS: NIFEdipine 10 MG CAP PO SCH ×5 (00:35→23:57)
[2016-11-21] MEDS: MAGNESIUM OXIDE 400 MG TAB PO SCH ×3 (09:07→21:04)
[2016-11-21] MEDS: PRENATAL VITAMIN PO SCH (09:07)
[2016-11-21] MEDS: LACTATED RINGER'S 1,000 ML IV SCH ×2 (10:30→23:00)
--- NOTE | 2016-11-21 14:23 | PN ---
Date/Time of Note Date/Time of Note DATE: 11/21/16 TIME: 14:22 OB Subjective Subjective Subjective Complaining of minimal leakage OB Objective Objective Objective Vital signs stable General physical exam is Uterus is nontender heart tones are reactive Last DAT was over 10 cm OB Assessment/Plan Reason for admission: labor Other Assessment: spontaneous rupture of membranes Other plan: Continue to observe Consult perinatologist re delivery time BROOKE ANGEL MD Nov 21, 2016 14:23
[2016-11-22] MEDS: NIFEdipine 10 MG CAP PO SCH ×3 (05:59→18:25)
[2016-11-22] MEDS: LACTATED RINGER'S 1,000 ML IV SCH ×2 (08:56→21:07)
[2016-11-22] MEDS: MAGNESIUM OXIDE 400 MG TAB PO SCH ×3 (09:11→21:06)
[2016-11-22] MEDS: PRENATAL VITAMIN PO SCH (09:11)
--- NOTE | 2016-11-22 14:56 | PN ---
Date/Time of Note Date/Time of Note DATE: 11/22/16 TIME: 14:55 OB Subjective Subjective Subjective No further complaint of leaking OB Objective Objective Objective Vital signs are stable General physical exam is normal heart tones are reactive Patient had normal white count Last DAT was over 10 cm OB Assessment/Plan Reason for admission: labor Other Assessment: spontaneous rupture of membranes Other plan: Consider delivering patient at 34 weeks BROOKE ANGEL MD Nov 22, 2016 14:56
[2016-11-23] MEDS: NIFEdipine 10 MG CAP PO SCH ×4 (00:02→17:54)
--- NOTE | 2016-11-23 08:12 | RADRPT ---
PROCEDURE: US OB. CLINICAL INDICATION: Low DAT , pain TECHNIQUE: Transabdominal views of the pelvis are available for review. COMPARISON: 11/20/2016 FINDINGS: There is a single intrauterine gestation in a vertex position. The heart rate is noted at 134 bpm. The placenta is posterior. The DAT measures 9.9 cm. RPTAT: AA IMPRESSION: Normal DAT. .Chepe Frankel MD, MD Date Time Electronically viewed and signed by .Chepe Frankel MD, on 11/23/2016 08:12 .S/
[2016-11-23] MEDS: PRENATAL VITAMIN PO SCH (08:53)
[2016-11-23] MEDS: MAGNESIUM OXIDE 400 MG TAB PO SCH ×3 (08:53→21:14)
[2016-11-23] MEDS: LACTATED RINGER'S 1,000 ML IV SCH ×2 (09:45→22:33)
--- NOTE | 2016-11-23 18:36 | PN ---
Date/Time of Note Date/Time of Note DATE: 11/23/16 TIME: 18:35 OB Subjective Subjective Subjective No more complaining of leaking OB Objective Objective Objective General physical exam is normal Vital signs are stable Rupture of membrane again confirmed heart tones are reactive On electronic monitoring no uterine contractions seen OB Assessment/Plan Reason for admission: labor Other Assessment: spontaneous rupture of membranes Other plan: Consider delivering at 34 weeks and we will consult perinatologist BROOKE ANGEL MD Nov 23, 2016 18:36
[2016-11-24] MEDS: NIFEdipine 10 MG CAP PO SCH ×5 (00:17→23:35)
[2016-11-24] MEDS: PRENATAL VITAMIN PO SCH (09:02)
[2016-11-24] MEDS: MAGNESIUM OXIDE 400 MG TAB PO SCH ×3 (09:02→21:00)
[2016-11-24] MEDS: LACTATED RINGER'S 1,000 ML IV SCH (12:29)
--- NOTE | 2016-11-24 13:54 | PN ---
Date/Time of Note Date/Time of Note DATE: 11/24/16 TIME: 13:53 OB Subjective Subjective Subjective No complaint of leaking No complaint of uterine contractions OB Objective Objective Objective Vital signs stable General physical exam is normal heart tones are reactive OB Assessment/Plan Reason for admission: labor Other Assessment: spontaneous rupture of membrane Other plan: Consult perinatologist about delivery time BROOKE ANGEL MD Nov 24, 2016 13:54
--- NOTE | 2016-11-24 16:11 | RADRPT ---
PROCEDURE: Limited OB ultrasound CLINICAL INDICATION: spontaneous rupture of membranes. Evaluate fluid volume. TECHNIQUE: Sonographic evaluation to assess the amniotic fluid volume was performed. Transabdomin al imaging of the gravid uterus was performed. COMPARISON: Exam dated 11/23/2016. FINDINGS: Single live intrauterine with cardiac activity is identified with a heart rate of 156 beats per minute. There is a cephalic lie and a fundal, grade 1 placenta. The amniotic -fluid volume equals approximately 8.3 cm. IMPRESSION: Amniotic fluid volume equals 8.3 cm, which is within normal limits. RPTAT: HLBP .Marcos Davis MD, MD Date Time Electronically viewed and signed by .Marcos Davis MD, on 11/24/2016 16:11 .P/
[2016-11-25] MEDS: LACTATED RINGER'S 1,000 ML IV SCH ×3 (01:50→18:52)
[2016-11-25] MEDS: NIFEdipine 10 MG CAP PO SCH ×4 (05:59→23:59)
[2016-11-25] MEDS: PRENATAL VITAMIN PO SCH (08:57)
[2016-11-25] MEDS: MAGNESIUM OXIDE 400 MG TAB PO SCH ×3 (08:57→21:03)
--- NOTE | 2016-11-25 16:31 | PN ---
Date/Time of Note Date/Time of Note DATE: 11/25/16 TIME: 16:27 OB Subjective Subjective Subjective No complaint of leaking and or uterine contractions OB Objective Objective Objective Vital signs are stable and general physical exam is unchanged heart tones are reactive DAT on November 24 was over 8 cm OB Assessment/Plan Reason for admission: labor Other Assessment: spontaneous rupture of membranes Other plan: Consulted perinatologist recommended delivery at 34 weeks We will induce next day Confirm presenting for BROOKE ANGEL MD Nov 25, 2016 16:31
[2016-11-26] MEDS: NIFEdipine 10 MG CAP PO SCH (06:08)
[2016-11-26] MEDS: LACTATED RINGER'S 1,000 ML IV SCH ×3 (06:26→22:00)
[2016-11-26] MEDS ORDERED: BUTORPHANOL 2 MG INJ IV PRN ×2 (07:30)
[2016-11-26] MEDS ORDERED: DINOPROSTONE 10 MG VAG SUPP VAG ONE (07:30)
[2016-11-26] MEDS ORDERED: LIDOCAINE 1% (MPF) 30 ML INJ INJ PRN (07:30)
[2016-11-26] MEDS ORDERED: AMPICILLIN 2 GM/NS (PMX) 100 ML IV ONE (07:30)
[2016-11-26] MEDS ORDERED: IBUPROFEN 600 MG TAB PO PRN (07:30)
[2016-11-26] MEDS ORDERED: CARBOPROST 250 MCG INJ IM PRN ×2 (07:30→23:00)
[2016-11-26] MEDS ORDERED: OXYTOCIN 30 UNITS/LR 500 ML IV PRN ×2 (07:30→23:00)
[2016-11-26] MEDS ORDERED: MISOPROSTOL 200 MCG TAB PR PRN ×2 (07:30→23:00)
[2016-11-26] MEDS ORDERED: OXYTOCIN 30 UNITS/LR 500 ML IV SCH ×3 (07:30→23:00)
[2016-11-26] MEDS ORDERED: METHYLERGONOVINE 0.2 MG INJ IM PRN ×2 (07:30→23:00)
[2016-11-26] MEDS: PRENATAL VITAMIN PO SCH (08:11)
[2016-11-26] MEDS: MAGNESIUM OXIDE 400 MG TAB PO SCH (09:00)
[2016-11-26 09:17] LABS: BASOPHILS % 0.2 % (0.0-2.0); EOSINOPHILS # 0.1 10^3/ul (0.0-0.5); EOSINOPHILS % 0.9 % (0.0-7.0); HEMATOCRIT 37.8 % (37.0-47.0); HEMOGLOBIN 12.4 g/dl (12.0-16.0); LYMPHOCYTES # 0.9 10^3/ul (0.8-2.9); MEAN CORPUSCULAR HEMOGLOBIN 28.9 pg (29.0-33.0); MEAN CORPUSCULAR HGB CONC 32.8 g/dl (32.0-37.0); MEAN CORPUSCULAR VOLUME 88.1 fl (82.0-101.0); MEAN PLATELET VOLUME 9.3 fl (7.4-10.4); MONOCYTE # 0.5 10^3/ul (0.3-0.9); MONOCYTES % 5.8 % (0.0-11.0); NEUTROPHIL # 6.6 10^3/ul (1.6-7.5); NEUTROPHILS % 81.2 % (39.0-77.0); PLATELET COUNT 253 10^3/UL (140-415); RED BLOOD COUNT 4.29 10^6/ul (4.20-5.40); RED CELL DISTRIBUTION WIDTH 14.3 % (11.5-14.5); WHITE BLOOD COUNT 8.1 10^3/ul (4.8-10.8)
[2016-11-26] MEDS ORDERED: BETAMET NA PHOS/AC(6 MG/ML) 5ML INJ IM SCH (09:30)
[2016-11-26 09:44] LABS: INR 0.93; PROTIME 12.5 Sec (12.2-14.2)
[2016-11-26 09:45] LABS: PARTIAL THROMBOPLASTIN TIME 29.9 Sec (25.0-35.0)
[2016-11-26] MEDS: AMPICILLIN 1 GM/NS (PMX) 50 ML IV SCH ×3 (12:32→19:25)
[2016-11-26] MEDS ORDERED: LACTATED RINGER'S 1,000 ML IV PRN (14:00)
--- NOTE | 2016-11-26 18:15 | PN ---
Date/Time of Note Date/Time of Note DATE: 11/26/16 TIME: 18:14 OB Subjective Subjective Subjective Complaining of minimal contractions OB Objective Objective Objective Vital signs stable General physical exam is unchanged heart tones are reactive Cervix was long and closed OB Assessment/Plan Reason for admission: labor Other Assessment: spontaneous rupture of membrane at 34 weeks and 2 days Other plan: Perinatologist already contacted recommended delivery We will proceed with Cervidil insertion BROOKE ANGEL MD Nov 26, 2016 18:15
[2016-11-26] MEDS ORDERED: OXYCODONE/ASPIRIN (4.88/325) TAB PO PRN (23:00)
[2016-11-26] MEDS ORDERED: LACTATED RINGER'S 1,000 ML IV* SCH (23:00)
--- NOTE | 2016-11-26 23:08 | LDN ---
Date/Time of Note Date/Time of Note DATE: 11/26/16 TIME: 23:05 Delivery Summary of a viable baby boy weighing 3060 grams, or 6# 12 oz, 17.75" long, and with Apgars of 8/9. Weeks of Gestation 34 weeks 2 days Placenta Delivered: Spontaneously Meconium: none Episiotomy: No Perineal laceration: 0 Anesthesia type: None Estimated blood loss: 400 Sponge & Needle done & correct: Yes All needle counts correct: Yes Any foreign bodies felt in the: No (vagina) Problems: Delivery Information Sex Sex: male Apgars 1 Minute: 8 5 Minute: 9 Suctioning Nose & mouth suctioned at talon: Yes Umbilical Cord Umbilical cord with: 3 Vessels Cord presentations: no nuchal cord Cord Blood was obtained: Yes Mother & Baby Disposition Disposition Mom to Maternity. Baby to NICU: Yes MIRLANDE MARKS MD Nov 26, 2016 23:08
[2016-11-26 23:50] VITALS: BP 110/57; PULSE 72; RESP 19
[2016-11-27] MEDS ORDERED: IBUPROFEN 600 MG TAB PO SCH
[2016-11-27] MEDS ORDERED: LACTATED RINGER'S 1,000 ML IV* SCH (00:10)
[2016-11-27 00:15] VITALS: BP 103/59; PULSE 74; RESP 19
[2016-11-27] MEDS ORDERED: OXYTOCIN 30 UNITS/LR 500 ML IV PRN (00:30)
[2016-11-27] MEDS ORDERED: ZOLPIDEM 5 MG TAB PO PRN (00:30)
[2016-11-27] MEDS ORDERED: MISOPROSTOL 200 MCG TAB PR PRN (00:30)
[2016-11-27] MEDS ORDERED: WITCH HAZEL/GLYCERIN PAD PR PRN (00:30)
[2016-11-27] MEDS ORDERED: HYDROCODONE/APAP (5/325) TAB PO PRN ×2 (00:30)
[2016-11-27] MEDS ORDERED: CARBOPROST 250 MCG INJ IM PRN (00:30)
[2016-11-27] MEDS ORDERED: METHYLERGONOVINE 0.2 MG INJ IM PRN (00:30)
[2016-11-27] MEDS ORDERED: BENZOCAINE 20% 56 ML SPRAY TOP PRN (00:30)
[2016-11-27] MEDS ORDERED: DIBUCAINE 1% 30 GM OINT PR PRN (00:30)
[2016-11-27] MEDS ORDERED: LANOLIN 7 GM TUBE TOP PRN (00:30)
[2016-11-27] MEDS: IBUPROFEN 600 MG TAB PO SCH ×5 (01:00→23:56)
[2016-11-27 04:00] VITALS: BP 106/60; PULSE 69; RESP 19
[2016-11-27 07:50] VITALS: BP 112/57; PULSE 81; RESP 17
[2016-11-27 09:09] LABS: BASOPHILS % 0.1 % (0.0-2.0); EOSINOPHILS % 0.1 % (0.0-7.0); HEMATOCRIT 29.8 % (37.0-47.0); HEMOGLOBIN 9.6 g/dl (12.0-16.0); LYMPHOCYTES # 1.2 10^3/ul (0.8-2.9); LYMPHOCYTES % 8.4 % (15.0-51.0); MEAN CORPUSCULAR HEMOGLOBIN 28.1 pg (29.0-33.0); MEAN CORPUSCULAR HGB CONC 32.2 g/dl (32.0-37.0); MEAN CORPUSCULAR VOLUME 87.1 fl (82.0-101.0); MEAN PLATELET VOLUME 9.7 fl (7.4-10.4); MONOCYTE # 0.7 10^3/ul (0.3-0.9); MONOCYTES % 5.1 % (0.0-11.0); NEUTROPHIL # 11.7 10^3/ul (1.6-7.5); NEUTROPHILS % 85.4 % (39.0-77.0); PLATELET COUNT 224 10^3/UL (140-415); RED BLOOD COUNT 3.42 10^6/ul (4.20-5.40); RED CELL DISTRIBUTION WIDTH 14.1 % (11.5-14.5); WHITE BLOOD COUNT 13.7 10^3/ul (4.8-10.8)
[2016-11-27] MEDS: SENNA/DOCUSATE NA (8.6MG/50MG) TAB PO SCH ×2 (09:29→22:49)
[2016-11-27] MEDS: MAGNESIUM HYDROXIDE 30ML CUP PO SCH ×2 (09:29→22:49)
[2016-11-27 12:00] VITALS: BP 117/62; PULSE 78; RESP 19
--- NOTE | 2016-11-27 15:55 | DS ---
Date/Time of Note Date/Time of Note Home next day DATE: 11/27/16 TIME: 15:54 Obstetrical Discharge Record Final Diagnosis Final Diagnosis: delivered Other Final Diagnosis Status post vaginal delivery Vaginal Delivery Obstetrical Delivery: Spontaneous Complications Induction: Yes Condition on Discharge Physical Assessment Last Vitals: See nurse's note Voiding: Yes Bowel Movement: Yes Breast: Soft, non-tender, Filling Fundus: Firm Abdomen and Incision: Soft bowel sounds positive Episiotomy: Not applicable Perineum is clean Calf Tenderness: No Patient Condition: Good BROOKE ANGEL MD Nov 27, 2016 15:55
--- NOTE | 2016-11-27 15:57 | DS ---
Date/Time of Note Date/Time of Note DATE: 11/27/16 TIME: 15:55 Discharge Summary Admission/Discharge Info Admit Date/Time Nov 09, 2016 at 23:23 Discharge Date/Time November 28, 2016 Discharge Diagnosis Status post vaginal delivery Patient Condition: Good Procedures Vaginal delivery Hx of Present Illness 32-year-old female admitted at 3132 weeks with spontaneous rupture of membranes and. Perinatologist had induction of labor at 34 weeks with successful vaginal delivery Hospital Course Uncomplicated Home Meds Active Scripts Penicillin V Potassium* (Penicillin V K*) 500 Mg Tab, 500 MG PO QID for 10 Days , TAB Prov:ROOSEVELT LEDBETTER 04/19/16 Cephalexin* (Keflex*) 500 Mg Capsule, 500 MG PO QID for 10 Days, CAP Prov:CHANTAL LOVING NP 03/11/16 Ibuprofen* (Motrin*) 600 Mg Tab, 600 MG PO Q8, #30 TAB Prov:CHANTAL LOVING NP 03/11/16 Benzocaine* (Orajel Maximum*) 1 Applic Gel, 1 APPLIC BUCCAL DAILY, #1 TUB Prov:HERIBERTO MONTERO PA-C 02/14/16 Metronidazole* (Flagyl*) 500 Mg Tablet, 2 GM PO ONCE for 1 Day, TAB Prov:CLAUDIA GUZMAN PA-C 02/23/15 Azithromycin* (Zithromax*) 500 Mg Tablet, 1000 MG PO ONCE, #1 TAB Prov:CLAUDIA GUZMAN PA-C 02/23/15 Hydrocodone Bit-Acetaminophen* (Bethany*) 5-325 Mg Tab, 1 TAB PO Q6 Y for PAIN, # 14 TAB Prov:ABEL PRADO PA-C 02/04/15 Reported Medications Multivit/Min/Fol Ac/Iron/Pren* ( S*) 1 Tab Tab, 1 TAB PO DAILY, TAB 11/09/16 [Takes No Prescribed Medications] No Conflict Check 02/22/12 Follow-up Plan 4 weeks in the clinic Primary Care Provider Care Physician No Primary Pending Labs Laboratory Tests Test 11/27/16 08:26 White Blood Count 13.710^3/ul (4.8-10.8) Red Blood Count 3.4210^6/ul (4.20-5.40) Hemoglobin 9.6g/dl (12.0-16.0) Hematocrit 29.8% (37.0-47.0) Mean Corpuscular Volume 87.1fl (82.0-101.0) Mean Corpuscular Hemoglobin 28.1pg (29.0-33.0) Mean Corpuscular Hemoglobin Concent 32.2g/dl (32.0-37.0) Red Cell Distribution Width 14.1% (11.5-14.5) Platelet Count 11923^3/UL (140-415) Mean Platelet Volume 9.7fl (7.4-10.4) Neutrophils % 85.4% (39.0-77.0) Lymphocytes % 8.4% (15.0-51.0) Monocytes % 5.1% (0.0-11.0) Eosinophils % 0.1% (0.0-7.0) Basophils % 0.1% (0.0-2.0) Nucleated Red Blood Cells % 0.0/100WBC (0.0-0.0) Neutrophils # 11.710^3/ul (1.6-7.5) Lymphocytes # 1.210^3/ul (0.8-2.9) Monocytes # 0.710^3/ul (0.3-0.9) Eosinophils # 0.010^3/ul (0.0-0.5) Basophils # 0.010^3/ul (0.0-0.1) Nucleated Red Blood Cells # 0.010^3/ul (0.0-0.0) BROOKE ANGEL MD Nov 27, 2016 15:56
--- NOTE | 2016-11-27 15:58 | PD.PPDC ---
DANCE PROFESSOR Discharge Instruction Provider Information Physician Information 32-year-old female had spontaneous fat vaginal delivery at 34 weeks Diagnosis Final Diagnosis: Status post vaginal Condition Patient Condition: Good Diet Diet: Resume Regular Diet Activity/Restrictions Activity: Normal Activity May Shower Restrictions: Nothing in the Vagina Return to Work or School: Jan 14, 2017 Follow-up Follow-up with Physician: 4, Week/Weeks (In clinic) Return to clinic for OB Instructions: Breast Tenderness Depression BROOKE ANGEL MD Nov 27, 2016 15:57
[2016-11-27] MEDS ORDERED: IBUP-1542 PO (15:59)
[2016-11-27 16:00] VITALS: BP 106/65; PULSE 76; RESP 18
[2016-11-27 19:40] VITALS: BP 114/67; PULSE 66; RESP 19
[2016-11-28 04:00] VITALS: BP 120/64; PULSE 72; RESP 19
[2016-11-28] MEDS: IBUPROFEN 600 MG TAB PO SCH ×2 (05:43→11:48)
[2016-11-28 08:15] VITALS: BP 112/88; PULSE 68; RESP 18
[2016-11-28] MEDS ORDERED: MEASLES,MUMPS,RUBELLA VACCINE INJ SC* ONE (09:00)
[2016-11-28] MEDS ORDERED: VARICELLA VACCINE LIVE/PF 1,350 UNIT/0.5 ML ML SC* ONE (09:00)
[2016-11-28] MEDS ORDERED: DIPHTH/TET/ACEL PERTUSS (ADULT) 0.5 ML VIAL IM* ONE ×2 (09:00)
[2016-11-28] MEDS: SENNA/DOCUSATE NA (8.6MG/50MG) TAB PO SCH (09:50)
[2016-11-28] MEDS: MAGNESIUM HYDROXIDE 30ML CUP PO SCH (09:50)
[2016-11-28 10:21] LABS: BASOPHILS % 0.3 % (0.0-2.0); EOSINOPHILS # 0.1 10^3/ul (0.0-0.5); EOSINOPHILS % 0.9 % (0.0-7.0); HEMATOCRIT 30.5 % (37.0-47.0); HEMOGLOBIN 9.8 g/dl (12.0-16.0); LYMPHOCYTES # 1.9 10^3/ul (0.8-2.9); LYMPHOCYTES % 20.3 % (15.0-51.0); MEAN CORPUSCULAR HEMOGLOBIN 28.3 pg (29.0-33.0); MEAN CORPUSCULAR HGB CONC 32.1 g/dl (32.0-37.0); MEAN CORPUSCULAR VOLUME 88.2 fl (82.0-101.0); MEAN PLATELET VOLUME 9.6 fl (7.4-10.4); MONOCYTE # 0.6 10^3/ul (0.3-0.9); MONOCYTES % 6.5 % (0.0-11.0); NEUTROPHIL # 6.6 10^3/ul (1.6-7.5); NEUTROPHILS % 71.1 % (39.0-77.0); PLATELET COUNT 242 10^3/UL (140-415); RED BLOOD COUNT 3.46 10^6/ul (4.20-5.40); RED CELL DISTRIBUTION WIDTH 14.5 % (11.5-14.5); WHITE BLOOD COUNT 9.2 10^3/ul (4.8-10.8)
== END 2016-11-28 16:05 | disposition home or self-care (01) | DRG 775 ==
LOC: L-D 15:11 → OBT 15:11 → OBG 23:23 → L-D 11-26 07:09 → PP1 11-26 23:45
PROVIDERS: ADMIT Obstetrics & Gynecology; ATTEND Obstetrics & Gynecology
PROC: 10E0XZZ Delivery of Products of Conception, External Approach (ICD-10-PCS; principal; 2016-11-26)
PROC: 3E033VJ Introduction of Other Hormone into Peripheral Vein, Percutaneous Approach (ICD-10-PCS; 2016-11-26)
DX: O60.14X0 Preterm labor third trimester with preterm delivery third trimester, not applicable or unspecified (principal); Z37.0 Single live birth; Z3A.34 34 weeks gestation of pregnancy
CPT/HCPCS: 36415; 76815; 76816; 76817; 76818; 81003; 83735; 84112; 85025; 85610; 85730; 86592; 86850; 86900; 86901; 87340; 88307; 90715; 90716; 96360; 96361; 96372; 99464; G0463; J0290; J0702; J1364; J2210; J2590; J3105; J3475; J7120

== ENCOUNTER 2018-12-04 19:18 | Emergency (ER) | payer MEDICAID ==
[~2018-12-04] VITALS: Ht 152.4 cm; Wt 110.0 kg
[~2018-12-04 19:18] MED LIST changes: -AZIT500T3 PO; +BEN25 PO; -CEPH-443 PO; -HYDR-3498 PO; -METR500T PO; -ORA20G7 BUCCAL; -PEN500 PO; +PRED20TA PO; +PRENAT PO; +TRIA15CR55 TOP; -[UNRECOGNIZED DRUG - REMARK]
[2018-12-04 19:20] VITALS: BP 131/77; PULSE 87; RESP 16; Ht 152.4 cm; Wt 110.0 kg
--- NOTE | 2018-12-04 19:56 | ERD ---
ER Documentation Chief Complaint Chief Complaint RASH RIGHT ARM. HPI Patient is a 33-year-old female presents the ER for concerns of a rash on her right arm x3 days. Patient states rash is itchy. Patient states initially she only had 1-2 lesions however now she has numerous lesions. Patient denies fevers or chills. Patient denies any recent travel or outdoor activities. Denies contact with poison lonnie. Patient denies any nausea, vomiting, chest pain, shortness of breath, abdominal pain or diarrhea. Patient has not taken any medications for symptoms. ROS All systems reviewed and are negative except as per history of present illness. Medications Home Meds Active Scripts Prednisone* (Prednisone*) 20 Mg Tab, 40 MG PO DAILY for 5 Days, TAB Prov:JUSTYNA VALERIO PA-C 12/04/18 Diphenhydramine Hcl* (Benadryl*) 25 Mg Cap, 25 MG PO Q6, #30 CAP Prov:JUSTYNA VALERIO PA-C 12/04/18 Triamcinolone Acetonide (Triamcinolone Acetonide) 0.1% - 15 Gm Cream.gm., 1 APPLIC TOP BID, #1 TUB Prov:JUSTYNA VALERIO PA-C 12/04/18 Ibuprofen* (Ibuprofen*) 600 Mg Tablet, 600 MG PO Q6, #30 TAB 0 Refills Prov:BROOKE ANGEL MD 11/27/16 Reported Medications Multivit/Min/Fol Ac/Iron/Pren* ( S*) 1 Tab Tab, 1 TAB PO DAILY, TAB 11/09/16 Allergies Allergies: Coded Allergies: No Known Drug Allergies (Verified Allergy, Mild, 11/13/16) No Known Drug Allergy (Verified Allergy, Unknown, 11/13/16) PMhx/Soc History of Surgery: No Anesthesia Reaction: No Hx Neurological Disorder: No Hx Respiratory Disorders: No Hx Cardiac Disorders: No Hx Psychiatric Problems: No Hx Miscellaneous Medical Probl: No Hx Alcohol Use: No Hx Substance Use: No Hx Tobacco Use: No FmHx Family History: No diabetes Physical Exam Vitals Vital Signs Date Temp Pulse Resp B/P (MAP) Pulse Ox O2 O2 Flow FiO2 Time Delivery Rate 12/04/18 98.2 87 16 131/77 98 19:20 (95) Physical Exam GENERAL: Well-developed, well-nourished female. Appears in no acute distress. HEAD: Normocephalic, atraumatic. EYES: Pupils are equally reactive bilaterally. EOMs grossly intact. No conjunctival erythema. ENT: Moist mucous membranes. No uvula deviation. No kissing tonsils. No lip swelling. No tongue swelling. Oropharynx is open patient is tolerating secretions well. NECK: Supple. No meningismus. Normal range of motion of the neck. LUNG: Clear to auscultation bilaterally. No rhonchi, wheezing, rales or coarse breath sounds. HEART: Regular rate and rhythm. No murmurs, rubs or gallops. EXTREMITIES: Equal pulses bilaterally. No peripheral clubbing, cyanosis or edema. No unilateral leg swelling. NEUROLOGIC: Alert and oriented. Moving all four extremities without any difficulty. Normal speech. Steady gait. SKIN: Erythematous papular lesions on the patient's arm. No streaking. No warmth. No bleeding or drainage. Procedures/MDM MEDICAL DECISION MAKING: This is a 33-year-old female presents to the ER for concerns of a rash on her right arm x3 days. Patient states the rash is itchy in nature. Vital signs were reviewed. Patient was afebrile. Patient is not diabetic. Given that the rash is itchy, I do have concerns of an unknown allergic reaction. Patient will be given prednisone as well as Benadryl. Patient advised to apply triamcinolone cream to the affected area. Patient, x1, difficulty breathing. low suspicion for anaphylaxis low suspicion for. necrotizing fasciitis, sepsis, gangrene, Lavelle-Cliff syndrome, toxic epidural necrolysis, abscess, cellulitis, herpes zoster, viral exanthem, fungal infection, insect bite, impetigo, dermatitis. Patient was nontoxic, [id number] prior to discharge. PRESCRIPTIONS: Prednisone, Benadryl, triamcinolone cream DISCHARGE: At this time, patient is stable for discharge and outpatient management. I have advised the patient to avoid any new products, creams or possible allergens. I have advised the patient to avoid scratching the lesions. I have instructed the patient to follow-up with his/her primary care physician in 1-2 days. If symptoms persist, patient may need to see a tray room worker for further examinations and testing. I have instructed the patient to promptly return to the ER at any time for any new or worsening symptoms including increased pain, fever, redness, swelling, warmth, difficulty breathing or vomiting. The patient and/or family expressed understanding of and agreement with this plan. All questions were answered. Home care instructions were provided. Disclaimer: Inadvertent spelling and grammatical errors are likely due to EHR/dictation software use and do not reflect on the overall quality of patient care. Also, please note that the electronic time recorded on this note does not necessarily reflect the actual time of the patient encounter. Departure Diagnosis: Primary Impression: Rash Condition: Fair Patient Instructions: Self-Care for Skin Rashes Referrals: [facility] YOU HAVE RECEIVED A MEDICAL SCREENING EXAM AND THE RESULTS INDICATE THAT YOU DO NOT HAVE A CONDITION THAT REQUIRES URGENT TREATMENT IN THE EMERGENCY DEPARTMENT. FURTHER EVALUATION AND TREATMENT OF YOUR CONDITION CAN WAIT UNTIL YOU ARE SEEN IN YOUR DOCTORS OFFICE WITHIN THE NEXT 1-2 DAYS. IT IS YOUR RESPONSIBILITY TO MAKE AN APPOINTMENT FOR FOLOW-UP CARE. IF YOU HAVE A PRIMARY DOCTOR --you should call your primary doctor and schedule an appointment IF YOU DO NOT HAVE A PRIMARY DOCTOR YOU CAN CALL OUR PHYSICIAN REFERRAL HOTLINE AT IF YOU CAN NOT AFFORD TO SEE A PHYSICIAN YOU CAN CHOSE FROM THE FOLLOWING [facility] [address] [facility]. [facility] [address] [facility]. [facility] [address] [facility] [facility] [address] [facility] [facility] [address] [facility]. [facility]. [address] [facility]. [facility] YOU HAVE RECEIVED A MEDICAL SCREENING EXAM AND THE RESULTS INDICATE THAT YOU DO NOT HAVE A CONDITION THAT REQUIRES URGENT TREATMENT IN THE EMERGENCY DEPARTMENT. FURTHER EVALUATION AND TREATMENT OF YOUR CONDITION CAN WAIT UNTIL YOU ARE SEEN IN YOUR DOCTORS OFFICE WITHIN THE NEXT 1-2 DAYS. IT IS YOUR RESPONSIBILITY TO MAKE AN APPOINTMENT FOR FOLOW-UP CARE. IF YOU HAVE A PRIMARY DOCTOR --you should call your primary doctor and schedule and appointment IF YOU DO NOT HAVE A PRIMARY DOCTOR YOU CAN CALL OUR PHYSICIAN REFERRAL HOTLINE AT . IF YOU CAN NOT AFFORD TO SEE A PHYSICIAN YOU CAN CHOSE FROM THE FOLLOWING [facility] INSTITUTIONS: [facility] [address] [place] [address] [facility] [address] [place] [address] [facility] [address] [place] [address] Additional Instructions: Call your primary care doctor TOMORROW for an appointment during the next 1-2 days.See the doctor sooner or return here if your condition worsens before your appointment time. JUSTYNA VALERIO PA-C Dec 04, 2018 19:56
== END 2018-12-04 19:41 | disposition home or self-care (01) ==
LOC: E/R 19:18
DX: R21 Rash and other nonspecific skin eruption (principal)
CPT/HCPCS: 99283